=== PATIENT | female | born 2005 | race Caucasian/White ===

== ENCOUNTER → 2024-11-24 | Outpatient (CLI) | payer BC ==
--- NOTE | 2024-11-24 23:11 | US ---
EXAMINATION TYPE: US thyroid st tissue head/neck DATE OF EXAM: 11/24/2024 COMPARISON: NONE CLINICAL INDICATION: Female, 19 years old with history of R68.89 HEAD LUMP R22.0 LUMP MASS SWELLING H EAD; Palpable lump right anterior skull in hairline near forehead x couple years Scanned patient's area of concern: no cyst, lipoma or soft tissue mass seen along palpable area of sk ull. If additional imaging would be of benefit, consider MRI. IMPRESSION: 1. No suspicious ultrasound findings. [facility], , 11/24/2024 11:09 PM
== END | disposition home or self-care (01) ==
LOC: RADUSWWP 15:24
PROVIDERS: ATTEND Family Medicine
DX: R68.89 Other general symptoms and signs (principal)
CPT/HCPCS: 76536